=== PATIENT | female | born 1985 | race Caucasian/White ===

== ENCOUNTER 2017-04-05 14:27 | Emergency (ER) | payer BC ==
[~2017-04-05] VITALS: Ht 162.6 cm; Wt 56.1 kg
[~2017-04-05 14:27] MED LIST: DIPH25CA65 PO; TRAM-10 PO
[2017-04-05 14:35] VITALS: Ht 162.6 cm; Wt 56.1 kg
[2017-04-05] MEDS ORDERED: SODIUM CHLORIDE 0.9% 1000ML 2,000 ML IV STA (14:57)
[2017-04-05] MEDS ORDERED: ONDANSETRON INJ 2 MG/ML 2 ML VIAL IV STA (14:57)
[2017-04-05] MEDS ORDERED: KETOROLAC TROMETHAMINE 30 MG/ML VIAL IV STA (14:57)
[2017-04-05] MEDS ORDERED: DiphenhydrAMINE HCL 50 MG/ML VIAL IV STA (14:57)
[2017-04-05] MEDS ORDERED: PROCHLORPERAZINE 5 MG/ML 2 ML VIAL IM STA (14:57)
[2017-04-05] MEDS ORDERED: DEXAMETHASONE SOD INJ 10 MG/ML VIAL IV ONE (15:00)
[2017-04-05 15:21] VITALS: O2SAT 98
[2017-04-05] MEDS ORDERED: IBUP-1050 PO (15:22)
--- NOTE | 2017-04-05 15:56 | DIAGNOSTIC IMAGING REPORT ---
CT SCAN OF THE BRAIN WITHOUT IV CONTRAST CLINICAL HISTORY: Headache. COMPARISON STUDY: No priors. TECHNIQUE: Unenhanced axial CT scan of the brain is performed from the vertex to the skull base. Automated dose control exposure was utilized. CT DOSE: 614.27 mGy.cm FINDINGS: Brain parenchyma: The brain parenchyma is normal in appearance. There is no hemorrhage, mass effect, or evidence of acute territorial ischemia by CT criteria. Blum-white matter is preserved. No extra-axial fluid collection is seen. Ventricles, sulci, cisterns: Normal in configuration. Intracranial vasculature: The visualized intracranial vasculature at the skull base is normal in appearance. Calvarium: Unremarkable. Sinuses and mastoids: The visualized paranasal sinuses are clear. The mastoid air cells are well pneumatized. Orbits: The bony orbits are grossly intact. IMPRESSION: No acute intracranial abnormality. Electronically signed by: Phil Kimbrough M.D. 04/05/2017 3:55 PM Dictated Date/Time: 04/05/2017 3:54 PM
--- NOTE | 2017-04-05 16:35 | EMERGENCY ROOM VISIT NOTE ---
ED Visit Note First contact with patient: 14:38 CHIEF COMPLAINT: Migraine headache times one day HISTORY OF PRESENT ILLNESS: Patient is a 32-year-old white female who presents to the emergency department for evaluation of a migraine that started yesterday. She has a history of migraine headaches, is followed by her primary care provider primarily. She has been worked up by neurology and had an MRI in the past. Patient states she can typically manage her migraines at home. She takes tramadol 50 mg at the onset of her headache which she took yesterday at 3 PM. 6 hours later she took ibuprofen, and continue to take the ibuprofen every 6 hours, but the headache has persisted. She states that her migraine feels typical of her normal phenomenon, just more severe. She experienced her typical visual aura, fatigue and feels pain in her usual bitemporal and occipital areas with associated nausea, photo and phonophobia. She denies any vomiting. She states this is one of the worst migraines that she has ever had, and rates her pain a 10/10 presently. She has not been ill with any cold, upper respiratory symptoms, fever or chills recently. She denies any difficulty with balance, speech or coordination. No numbness, tingling or weakness into the extremities. No trauma to the head and no neck pain. She states that she had her period from the eighth to the 12th, and does note that sometimes her bad headaches correspond to her menses. REVIEW OF SYSTEMS: Review of systems as per HPI. All other systems reviewed were negative. 10 systems reviewed. PMH: Electronic medical records are reviewed and summarized as above/below. See Problem List. SOCIAL HISTORY: Patient lives at home with her and children. Employed. Nonsmoker. PHYSICAL EXAM: Vital Signs: Reviewed Nurse's notes. General Appearance: Uncomfortable-appearing 32-year-old white female who was awake and alert and laying in a darkened room. Eyes: Pupils equal round reactive to light extraocular muscles are intact, no proptosis, mild photophobia. Funduscopic exam unable to be performed due to photophobia. ENT: Oropharynx is clear, mucous membranes are moist, tympanic membranes are clear bilaterally, no sinus or dental tenderness Neck: Supple, no cervical lymphadenopathy, no meningismus Heart: Regular rate and rhythm, S1 and S2 Lungs: Clear to auscultation bilaterally, no wheezes Rales or rhonchi, no increased work of breathing Abdomen: Soft nontender nondistended. Normal active bowel sounds. No rebound. No guarding. Back: No midline tenderness to palpation. : No CVA tenderness to palpation. Skin: Warm, no diaphoresis, no rashes. Extremities: No cyanosis, clubbing, or edema Neurologic: Patient is awake alert, and oriented x 3. Cranial nerves 2-12 are grossly intact. Motor 5 out of 5 strength bilateral upper extremities and lower extremities. No gross sensory deficits. Reflexes are 2+ throughout. Negative Romberg and pronator drift. Rapid alternating movements are intact. Normal gait. EMERGENCY DEPARTMENT COURSE: The patient was seen and evaluated as above. Her old records were reviewed. IV lock was initiated. She was placed on the continuous pulse ox monitoring. She was given a 2 L bolus of normal saline solution and medicated with Toradol 30 mg, Zofran 4 mg, Decadron 10 mg, Compazine 10 mg and Benadryl 25 mg IV. Due to the severe nature of her headache , I did discuss performing a head CT with her and she was in agreement. Her neurologic exam is otherwise benign. She does not have any physical exam findings to suspect meningitis or encephalitis. Head CT was negative as noted below. The patient was reassessed, and reported significant improvement in her headache. She rated a 3/10, and felt well enough to discharge to home to rest and use her home medications. Her is driving. The patient rated her pain a 2/10 at discharge. Differential includes: acute intracranial bleed, meningitis, encephalitis, mass or mass effect, sinusitis, infection, migraine, tumor, headache, temporal arteritis and carbon monoxide exposure. CT SCAN OF THE BRAIN WITHOUT IV CONTRAST CLINICAL HISTORY: Headache. COMPARISON STUDY: No priors. TECHNIQUE: Unenhanced axial CT scan of the brain is performed from the vertex to the skull base. Automated dose control exposure was utilized. CT DOSE: 614.27 mGy.cm FINDINGS: Brain parenchyma: The brain parenchyma is normal in appearance. There is no hemorrhage, mass effect, or evidence of acute territorial ischemia by CT criteria. Blum-white matter is preserved. No extra-axial fluid collection is seen. Ventricles, sulci, cisterns: Normal in configuration. Intracranial vasculature: The visualized intracranial vasculature at the skull base is normal in appearance. Calvarium: Unremarkable. Sinuses and mastoids: The visualized paranasal sinuses are clear. The mastoid air cells are well pneumatized. Orbits: The bony orbits are grossly intact. IMPRESSION: No acute intracranial abnormality. Problem List Medical Problems: (1) Chest pain Status: Resolved (2) Contusion of rib Status: Resolved (3) Dermatitis Status: Resolved (4) Fibromyalgia Status: Chronic (5) Fibromyalgia Status: Resolved (6) Intrauterine Status: Resolved (7) Personal History Of Urinary Calculi Status: Chronic (8) CONTRACTIONS Status: Resolved (9) Rash Status: Resolved (10) Sacral back pain Status: Resolved (11) Spontaneous rupture of membranes Status: Resolved (12) Vaginal delivery Status: Resolved Surgical Problems: (1) Myringotomy tube status Status: Resolved Current/Historical Medications Scheduled PRN Diphenhydramine Hcl (Benadryl Allergy), 1 CAP PO DIRECTED PRN for ALLERGIC REACTION Ibuprofen (Advil), 400 MG PO Q6 PRN for Headache Tramadol (Ultram), 50 MG PO Q8H PRN for OPTICAL HEADACHE Allergies Coded Allergies: Onion (Verified Allergy, Severe, ANAPHYLAXIS WITH RED ONIONS, 11/26/15) Vancomycin (Verified Allergy, Severe, RASH, SOB, 11/26/15) [place] (Verified Allergy, Intermediate, Rash, 11/26/15) Ciprofloxacin (Unverified Allergy, Mild, OTHER, 11/26/15) Latex1 -Allergic Contact Dermititis (Unverified Allergy, Mild, RASH, ) Pregabalin (Unverified Allergy, Unknown, NAUSEA,ITCHING, 11/26/15) Quinolones (Verified Adverse Reaction, Severe, BLEEDING, 11/26/15) Hyoscyamine (Verified Adverse Reaction, Mild, HEADACHE, 11/26/15) Penicillins (Verified Adverse Reaction, Mild, HEADACHE, HAS HAD IV PCN W/ O RXN, 11/26/15) HEADACHES Vital Signs Date Time Temp Pulse Resp B/P Pulse Ox O2 Delivery O2 Flow Rate FiO2 04/05/17 17:10 36.7 65 18 99/60 99 04/05/17 17:04 65 18 99/60 99 Room Air 04/05/17 15:21 98 Room Air 04/05/17 14:35 36.7 74 16 119/82 98 Room Air Medications Administered Medications (Trade) Dose Ordered Sig/Amita Route Start Time Stop Time Status Last Admin Dose Admin Sodium Chloride (Nss 1000ml) 2,000 ml @ 999 mls/hr Q2H1M STAT IV 04/05/17 14:57 04/05/17 16:57 DC 04/05/17 15:19 999 MLS/HR Ketorolac Tromethamine (Toradol Inj) 30 mg NOW STAT IV 04/05/17 14:57 04/05/17 15:00 DC 04/05/17 15:20 30 MG Dexamethasone Sodium Phosphate (Decadron Inj) 10 mg NOW ONCE IV 04/05/17 15:00 04/05/17 15:01 DC 04/05/17 15:20 10 MG Prochlorperazine Edisylate (Compazine Inj) 10 mg NOW STAT IM 04/05/17 14:57 04/05/17 15:00 DC 04/05/17 15:19 10 MG Diphenhydramine HCl (Benadryl Inj) 25 mg NOW STAT IV 04/05/17 14:57 04/05/17 15:00 DC 04/05/17 15:19 25 MG Ondansetron HCl (Zofran Inj) 4 mg NOW STAT IV 04/05/17 14:57 04/05/17 15:00 DC 04/05/17 15:20 4 MG Departure Information Impression Primary Impression: Migraine Referrals Shanae Carvalho D.OAgapito (PCP) Patient Instructions My [facility] Additional Instructions DO NOT drive, drink alcohol, operate machinery, or perform dangerous activities today. You were given medications in the ER that can affect your ability to safely function or operate a vehicle. Rest today in a quiet, peaceful, dark environment and get a full 8-10 hrs of sleep tonight. Avoid loud noises, smoke/smoking, alcohol, bright lights, stress, or physical exertion today to minimize the chance the headache may return. Continue current medications. Return to the ER for passing out, worsening headache, vision problems, neck stiffness/pain, fevers, vomiting, worsening of your condition, or as needed. Follow up with your primary physician in 2-3 days for a recheck of your current condition.
[2017-04-05 17:10] VITALS: BP 99/60; PULSE 65; TEMP 36.7; O2SAT 99
== END 2017-04-05 17:11 | disposition home or self-care (01) ==
LOC: C.EDB 14:30 → C.EDC 17:11
DX: G43.909 Migraine, unspecified, not intractable, without status migrainosus (principal); Z87.442 Personal history of urinary calculi

== ENCOUNTER → 2017-09-02 | Outpatient (CLI) | payer BC ==
[~2017-09-02] MED LIST changes: +IBUP-1050 PO
[2017-09-02 13:13] LABS: HEMATOCRIT 40.7 % (37-47); MEAN CELL VOLUME 88.7 fL (80-100); MEAN CORPUSCULAR HEMOGLOBIN 29.4 pg (25-34); MEAN CORPUSCULAR HGB CONC 33.2 g/dl (32-36); MEAN PLATELET VOLUME 10.6 fL (7.4-10.4); PLATELET COUNT 211 K/uL (130-400); RED BLOOD COUNT 4.59 M/uL (4.2-5.4)
[2017-09-02 13:29] LABS: PREG INTERNAL NEGATIVE QC NEG CLEAR BACKGROUND; PREG INTERNAL POSITIVE QC POS CONTROL LINE
== END | disposition home or self-care (01) ==
LOC: C.LAB1850 11:41
PROVIDERS: ATTEND Physician Assistant
DX: N92.0 Excessive and frequent menstruation with regular cycle (principal)

== ENCOUNTER 2017-09-09 20:18 | Emergency (ER) | payer BC ==
[~2017-09-09] VITALS: Ht 162.6 cm; Wt 56.7 kg
[2017-09-09 20:39] VITALS: TEMP 36.9
[2017-09-09 21:25] VITALS: Ht 162.6 cm; Wt 56.7 kg
[2017-09-09 21:45] VITALS: O2SAT 99
[2017-09-09 21:49] LABS: BASO % 0.5 %; BASO ABS # 0.03 K/uL (0-0.2); COMPLETE YES; EOS % 1.9 %; HEMATOCRIT 36.6 % (37-47); IG% 0.2 %; MEAN CELL VOLUME 88.4 fL (80-100); MEAN CORPUSCULAR HGB CONC 33.9 g/dl (32-36); MEAN PLATELET VOLUME 10.1 fL (7.4-10.4); MONO % 9.3 %; NEUT % 51.1 %; PLATELET COUNT 206 K/uL (130-400); RED BLOOD COUNT 4.14 M/uL (4.2-5.4); WHITE BLOOD COUNT 5.94 K/uL (4.8-10.8)
[2017-09-09 22:09] LABS: PROTHROMBIN TIME (PATIENT) 10.9 SECONDS (9.0-12.0)
[2017-09-09 22:11] LABS: URINE APPEARANCE CLEAR (CLEAR); URINE BILIRUBIN NEG (NEG); URINE COLOR YELLOW; URINE NITRITE NEG (NEG); URINE PH 5.5 (4.5-7.5); URINE SPECIFIC GRAVITY 1.026 (1.000-1.030); UROBILINOGEN NEG (NEG)
[2017-09-09 22:13] LABS: MANUAL MICROSCOPIC REQUIRED? NO; REVIEW REQ? NO
[2017-09-09 22:15] LABS: BUN/CREATININE RATIO 23.5 (10-20); CREATININE 0.66 mg/dl (0.60-1.20); POTASSIUM 3.4 mmol/L (3.5-5.1)
[2017-09-09 22:17] LABS: ALB/GLOB RATIO 1.2 (0.9-2)
[2017-09-09] MEDS ORDERED: KETOROLAC TROMETHAMINE 30 MG/ML VIAL IV STA (23:49)
[2017-09-10 00:17] VITALS: BP 132/74; PULSE 68; O2SAT 99
[2017-09-10] MEDS ORDERED: NAPR500T3 PO (00:17)
--- NOTE | 2017-09-10 01:28 | EMERGENCY ROOM VISIT NOTE ---
History Report prepared by Dean: Damari Escobedo Under the Supervision of: Dr. Bossman Sung M.D. First contact with patient: 20:49 Chief Complaint: VAGINAL BLEEDING Stated Complaint: HEAVY PERIOD History of Present Illness The patient is a 32 year old female who presents to the Emergency Room with complaints of persistent heavy vaginal bleeding starting 1200 today. The patient has been having increasingly heavy periods since the of her 3rd child 4 years ago. Since 1200, she has been soaking a super tampon and a pad every hour. She is feeling nauseous. She reports lower abdominal cramping which she states feels like going into labor. She is having lower back pain which radiates up her back. She usually only has lower back pain with her periods. She states that she can feel the pain when she breathes in. She has tried taking Motrin for the pain to no significant relief. She is not on control. She notes a family history of endometriosis. Pt denies LOC, headache, fevers, chills, diaphoresis, visual changes, neck pain, chest pain, breathing difficulties, vomiting, melena, hematochezia, urinary symptoms, numbness, weakness, lymphadenopathy, rash, or other complaints. Source of History: patient Onset: 1200 Position: other (vaginal) Symptom Intensity: 1 tampon and pad per hour Quality: other (heavy bleeding) Timing: other (persistent) Associated Symptoms: + nausea, + abdominal pain, + back pain Review of Systems See HPI for pertinent positives and negatives. A total of ten systems were reviewed and were otherwise negative. Past Medical & Surgical Medical Problems: (1) Chest pain (2) Contusion of rib (3) Dermatitis (4) Fibromyalgia (5) Fibromyalgia (6) Intrauterine (7) Personal History Of Urinary Calculi (8) CONTRACTIONS (9) Rash (10) Sacral back pain (11) Spontaneous rupture of membranes (12) Vaginal delivery Surgical Problems: (1) Myringotomy tube status Family History Hypertension Social History Smoking Status: Never Smoker Alcohol Use: none Drug Use: none Marital Status: Housing Status: lives with family Occupation Status: employed Current/Historical Medications Scheduled PRN Naproxen (Naproxen), 1 TAB PO BID PRN for Pain Allergies Coded Allergies: Onion (Verified Allergy, Severe, ANAPHYLAXIS WITH RED ONIONS, 09/09/17) Vancomycin (Verified Allergy, Severe, RASH, SOB, 11/26/15) [place] (Verified Allergy, Intermediate, Rash, 09/09/17) Ciprofloxacin (Unverified Allergy, Mild, OTHER, 09/09/17) Latex1 -Allergic Contact Dermititis (Unverified Allergy, Mild, RASH, 09/09) Pregabalin (Unverified Allergy, Unknown, NAUSEA,ITCHING, 09/09/17) Quinolones (Verified Adverse Reaction, Severe, BLEEDING, 11/26/15) Hyoscyamine (Verified Adverse Reaction, Mild, HEADACHE, 09/09/17) Penicillins (Verified Adverse Reaction, Mild, HEADACHE, HAS HAD IV PCN W/ O RXN, 09/09/17) HEADACHES Physical Exam Vital Signs Date Time Temp Pulse Resp B/P (MAP) Pulse Ox O2 Delivery O2 Flow Rate FiO2 09/10/17 00:17 68 16 132/74 99 Room Air 09/09/17 23:08 66 16 106/69 97 Room Air 09/09/17 22:06 64 16 105/72 99 Room Air 09/09/17 21:55 67 09/09/17 21:45 99 Room Air 09/09/17 21:45 68 13 108/64 99 Room Air 09/09/17 20:39 36.9 72 20 135/96 99 Room Air Physical Exam GENERAL: Awake, alert, uncomfortable-appearing, in no distress HENT: Normocephalic, atraumatic. Oropharynx unremarkable. EYES: Normal conjunctiva. Sclera non-icteric. NECK: Supple. No nuchal rigidity. FROM. No JVD. RESPIRATORY: Clear to auscultation. CARDIAC: Regular rate, normal rhythm. Extremities warm and well perfused. Pulses equal. ABDOMEN: Soft, non-distended. Suprapubic tenderness to palpation. No rebound or guarding. No masses. PELVIC: Normal female anatomy. Cervix appears unremarkable. Mild tenderness and discomfort with speculum placement. No active hemorrhage. Dark Blood noted from the cervical os. MUSCULOSKELETAL: Chest examination reveals no tenderness. The back is symmetrical on inspection without obvious abnormality. There is left CVA tenderness to palpation. No joint edema. LOWER EXTREMITIES: Calves are equal size bilaterally and non-tender. No edema. No discoloration. NEURO: Normal sensorium. No sensory or motor deficits noted. SKIN: No rash or jaundice noted. Medical Decision & Procedures ER Provider Diagnostic Interpretation: Radiology results as stated below per my review and [facility] radiologist interpretation: US Pelvic/Endovag: Uterus measures 9.8 x 5.1 x 5.6 cm. No evidence of uterine mass. Endometrial echo complex measures 0.6 cm, which is within normal limits. Bilateral ovaries are normal in size, appearance, and blood flow. Prominent adnexal blood vasculature noted, nonspecific but correlate for possibility of pelvic congestion syndrome. Trace free fluid in cul-de-sac. Laboratory Results 09/09/17 21:33 Red Blood Count 4.14, Mean Corpuscular Volume 88.4, Mean Corpuscular Hemoglobin 30.0, Mean Corpuscular Hemoglobin Concent 33.9, Mean Platelet Volume 10.1, Neutrophils (%) (Auto) 51.1, Lymphocytes (%) (Auto) 37.0, Monocytes (%) (Auto) 9.3, Eosinophils (%) (Auto) 1.9, Basophils (%) (Auto) 0.5, Neutrophils # (Auto) 3.04, Lymphocytes # (Auto) 2.20, Monocytes # (Auto) 0.55, Eosinophils # (Auto) 0.11, Basophils # (Auto) 0.03 09/09/17 21:33 Test 09/09/17 21:30 09/09/17 21:33 Urine Color YELLOW Urine Appearance CLEAR (CLEAR) Urine pH 5.5 (4.5-7.5) Urine Specific [place] 1.026 (1.000-1.030) Urine Protein NEG (NEG) Urine Glucose (UA) NEG (NEG) Urine Ketones NEG (NEG) Urine Occult Blood 1+ (NEG) Urine Nitrite NEG (NEG) Urine Bilirubin NEG (NEG) Urine Urobilinogen NEG (NEG) Urine Leukocyte Esterase NEG (NEG) Urine WBC (Auto) 0 /hpf (0-5) Urine RBC (Auto) 5-10 /hpf (0-4) Urine Hyaline Casts (Auto) 0 /lpf (0-5) Urine Epithelial Cells (Auto) 10-20 /lpf (0-5) Urine Bacteria (Auto) NEG (NEG) Urine Test NEG (NEG) White Blood Count 5.94 K/uL (4.8-10.8) Red Blood Count 4.14 M/uL (4.2-5.4) Hemoglobin 12.4 g/dL (12.0-16.0) Hematocrit 36.6 % (37-47) Mean Corpuscular Volume 88.4 fL (80-100) Mean Corpuscular Hemoglobin 30.0 pg (25-34) Mean Corpuscular Hemoglobin Concent 33.9 g/dl (32-36) Platelet Count 206 K/uL (130-400) Mean Platelet Volume 10.1 fL (7.4-10.4) Neutrophils (%) (Auto) 51.1 % Lymphocytes (%) (Auto) 37.0 % Monocytes (%) (Auto) 9.3 % Eosinophils (%) (Auto) 1.9 % Basophils (%) (Auto) 0.5 % Neutrophils # (Auto) 3.04 K/uL (1.4-6.5) Lymphocytes # (Auto) 2.20 K/uL (1.2-3.4) Monocytes # (Auto) 0.55 K/uL (0.11-0.59) Eosinophils # (Auto) 0.11 K/uL (0-0.5) Basophils # (Auto) 0.03 K/uL (0-0.2) RDW Standard Deviation 42.2 fL (36.4-46.3) RDW Coefficient of Variation 13.2 % (11.5-14.5) Immature Granulocyte % (Auto) 0.2 % Immature Granulocyte # (Auto) 0.01 K/uL (0.00-0.02) Prothrombin Time 10.9 SECONDS (9.0-12.0) Prothromb Time International Ratio 1.0 (0.9-1.1) Activated Partial Thromboplast Time 24.7 SECONDS (21.0-31.0) Partial Thromboplastin Ratio 1.0 Anion Gap 5.0 mmol/L (3-11) Est Creatinine Clear Calc Drug Dose 106.7 ml/min Estimated GFR () 136.4 Estimated GFR (Non- 117.7 BUN/Creatinine Ratio 23.5 (10-20) Calcium Level 9.0 mg/dl (8.5-10.1) Total Bilirubin 0.5 mg/dl (0.2-1) Aspartate Amino Transf (AST/SGOT) 12 U/L (15-37) Alanine Aminotransferase (ALT/SGPT) 17 U/L (12-78) Alkaline Phosphatase 50 U/L (45-117) Total Protein 7.3 gm/dl (6.4-8.2) Albumin 3.9 gm/dl (3.4-5.0) Globulin 3.4 gm/dl (2.5-4.0) Albumin/Globulin Ratio 1.2 (0.9-2) Laboratory results reviewed by me Medications Administered Medications (Trade) Dose Ordered Sig/Amita Route Start Time Stop Time Status Last Admin Dose Admin Ketorolac Tromethamine (Toradol Inj) 15 mg NOW STAT IV 09/09/17 23:49 09/09/17 23:50 DC 09/10/17 00:01 15 MG ED Course 2100: The patient was evaluated in room B6. A complete history and physical exam was performed. 2344: I reevaluated the patient. I discussed the results with her. 2349: Toradol Inj 15 mg IV. 2356: I discussed the patient's case with Dr. Gordon, [facility] Deputy Director Of Finance. She recommends symptomatic treatment and outpatient follow up. 0010: Upon reexamination, the patient was doing better. I discussed the test results with her. She verbalized agreement of the treatment plan. She will be discharged home to follow up in the office. Medical Decision Prior records/ancillary studies reviewed. Triage Nursing notes reviewed and agree them. The patient's history was concerning for vaginal bleeding and abdominal pain. Differential diagnosis: Etiologies such as ectopic , dysfunction uterine bleeding, bleeding dyscrasia, trauma, infection, as well as others were entertained. Physical examination: as above. benign abdomen ER treatment provided: Toradol On reassessment the patient felt better. Diagnostic interpretation by me: CBC, coagulation studies, and chemistries were unremarkable. Urinalysis unremarkable. Patient is not . Imaging studies: Ultrasound as above The patient appears to have dysfunctional uterine bleeding. She will need close outpatient follow-up with [facility]. Consultation: A consultation was placed with the tail ripper physician, Dr. Gordon. The case was discussed and diagnostics were reviewed. She stressed the need for outpatient follow-up with [facility]. She agreed with NSAID use. By the evaluation outlined above emergent etiologies such as bleeding dyscrasia , ectopic , trauma, as well as others were deemed relatively unlikely. The patient was informed about the findings as listed above. All questions were answered and she was very pleased with the treatment. Return instructions were outlined and the patient was discharged in stable condition. Outpatient prescription management: Naprosyn 500 mg twice a day as needed for pain or bleeding Referral: The patient was referred to [facility] for follow-up in 2 to 3 days for a recheck of her current condition. Medication Reconcilliation Current Medication List: was personally reviewed by me Blood Pressure Screening Patient's blood pressure: Normal blood pressure Blood pressure disposition: Did not require urgent referral Consults Time Called: [phone] Consulting Physician: Dr. Gordon [facility] Deputy Director Of Finance Returned Call: [phone] I discussed the patient's case with her. She recommends symptomatic treatment and outpatient follow up. Impression Primary Impression: Dysfunctional uterine bleeding Scribe Attestation The scribe's documentation has been prepared under my direction and personally reviewed by me in its entirety. I confirm that the note above accurately reflects all work, treatment, procedures, and medical decision making performed by me. Departure Information Dispostion Home / Self-Care Prescriptions Naproxen (NAPROXEN) 500 Mg Tab 1 TAB PO BID Y for Pain, #20 TAB Prov: Bossman Sung MD 09/10/17 Referrals Shanae Carvalho D.O. Patel, Shreya M., M.D.([employer] ANALYST/OB) Forms HOME CARE DOCUMENTATION FORM, IMPORTANT VISIT INFORMATION, WORK / SCHOOL INSTRUCTIONS Patient Instructions My [facility] Additional Instructions Naprosyn 500 mg every 12 hours as needed for pain and bleeding. Take with food. Prolonged inappropriate use can lead to stomach upset or ulcers. Return to the emergency department for passing out, abdominal pain, bleeding more than 3 pads an hour for 3 consecutive hours, or as needed. No tampon use, intercourse, physical exertion, or strenuous activity. Rest and drink plenty of fluids. Follow-up with [facility] tomorrow to set your follow-up appointment.
--- NOTE | 2017-09-10 06:59 | DIAGNOSTIC IMAGING REPORT ---
EXAMINATION: PELVIC ULTRASOUND (transabdominal and endovaginal scanning) CLINICAL HISTORY: vaginal bleeding COMPARISON STUDY: 04/24/2013 FINDINGS: The uterus measured 9.8 x 5.1 x 5.6 cm. The endometrial stripe measured 6 mm. The right ovary measured 31 x 17 x 27 mm. The left ovary measured 37 x 13 x 25 mm. There is no ultrasonographic evidence of ovarian torsion. It should be noted that ovarian torsion can be present with normal Doppler ultrasonographic findings. There is trace free fluid likely physiologic. There is prominent adnexal vasculature. This is a nonspecific finding but has been reported in pelvic congestion syndrome. IMPRESSION: Normal uterus and ovaries. Electronically signed by: Alpesh Henley M.D. 09/10/2017 6:57 AM Dictated Date/Time: 09/10/2017 6:56 AM
== END 2017-09-10 00:28 | disposition home or self-care (01) ==
LOC: C.EDB 20:19
DX: N93.8 Other specified abnormal uterine and vaginal bleeding (principal); Z87.828 Personal history of other (healed) physical injury and trauma; Z87.440 Personal history of urinary (tract) infections; Z88.0 Allergy status to penicillin; Z88.1 Allergy status to other antibiotic agents; Z88.2 Allergy status to sulfonamides; Z91.040 Latex allergy status; Z91.018 Allergy to other foods; Z91.09 Other allergy status, other than to drugs and biological substances; Z82.49 Family history of ischemic heart disease and other diseases of the circulatory system

== ENCOUNTER 2018-01-17 17:09 | Emergency (ER) | payer BC ==
[~2018-01-17] VITALS: Ht 162.6 cm; Wt 55.0 kg
[~2018-01-17 17:09] MED LIST changes: -DIPH25CA65 PO; -IBUP-1050 PO; +NAPR500T3 PO; -TRAM-10 PO
[2018-01-17 17:17] VITALS: TEMP 36.3; Ht 162.6 cm; Wt 55.0 kg
[2018-01-17] MEDS ORDERED: KETOROLAC TROMETHAMINE 30 MG/ML VIAL IV STA (18:30)
[2018-01-17] MEDS ORDERED: ONDANSETRON INJ 2 MG/ML 2 ML VIAL IV STA (18:30)
[2018-01-17] MEDS ORDERED: SODIUM CHLORIDE 0.9% 1000ML 1,000 ML IV STA (18:30)
[2018-01-17] MEDS ORDERED: CNC/18 PO (18:55)
[2018-01-17] MEDS ORDERED: DFL150 PO (18:55)
[2018-01-17] MEDS ORDERED: PHEN-876 PO (18:55)
[2018-01-17] MEDS ORDERED: CIPR-304 PO (18:55)
[2018-01-17] MEDS ORDERED: ULT50 PO (18:55)
[2018-01-17] MEDS ORDERED: SERT1TAB88 PO (18:55)
--- NOTE | 2018-01-17 18:58 | DIAGNOSTIC IMAGING REPORT ---
L-SPINE MIN 4 VIEWS ROUTINE CLINICAL HISTORY: Low back pain COMPARISON STUDY: No previous studies for comparison. FINDINGS: No fractures or subluxations are visualized. No destructive lesions are delineated on conventional radiographic evaluation. There is no pathologic bowel dilatation. IMPRESSION: Unremarkable conventional radiographic evaluation of the lumbar spine Electronically signed by: Alpesh Henley M.D. 01/17/2018 6:57 PM Dictated Date/Time: 01/17/2018 6:56 PM
[2018-01-17 19:19] LABS: BASO % 0.4 %; BASO ABS # 0.02 K/uL (0-0.2); EOS % 2.6 %; EOS ABS # 0.14 K/uL (0-0.5); HEMATOCRIT 39.8 % (37-47); HEMOGLOBIN 13.5 g/dL (12.0-16.0); LYMPH % 22.7 %; LYMPH ABS # 1.24 K/uL (1.2-3.4); MEAN CELL VOLUME 88.8 fL (80-100); MEAN CORPUSCULAR HEMOGLOBIN 30.1 pg (25-34); MEAN CORPUSCULAR HGB CONC 33.9 g/dl (32-36); MEAN PLATELET VOLUME 10.4 fL (7.4-10.4); MONO % 6.4 %; MONO ABS # 0.35 K/uL (0.11-0.59); NEUT % 67.9 %; NEUT ABS # 3.72 K/uL (1.4-6.5); PLATELET COUNT 204 K/uL (130-400); RED CELL DISTRIBUTION WIDTH CV 13.4 % (11.5-14.5); RED CELL DISTRIBUTION WIDTH SD 43.5 fL (36.4-46.3); WHITE BLOOD COUNT 5.47 K/uL (4.8-10.8)
[2018-01-17 19:37] LABS: ALBUMIN 3.9 gm/dl (3.4-5.0); CALCIUM 8.7 mg/dl (8.5-10.1); CREATININE 0.75 mg/dl (0.60-1.20); POTASSIUM 4.1 mmol/L (3.5-5.1)
[2018-01-17 19:40] LABS: TOTAL PROTEIN 7.7 gm/dl (6.4-8.2)
--- NOTE | 2018-01-17 20:40 | DIAGNOSTIC IMAGING REPORT ---
CT SCAN OF THE ABDOMEN AND PELVIS WITHOUT CONTRAST CLINICAL HISTORY: Right flank pain and hematuria COMPARISON STUDY: August 2010 TECHNIQUE: CT scan of the abdomen and pelvis was performed from the lung bases to the proximal femurs. Images are reviewed in the axial, sagittal, and coronal planes. IV contrast was not administered for this examination. A dose lowering technique was utilized adhering to the principles of ALARA. CT DOSE: 314.27 mGy.cm FINDINGS: Lower chest: There are mild basilar atelectatic changes Liver: There is a stable 6 mm right lobe hepatic lipoma Gallbladder: Unremarkable. Spleen: Normal in size and attenuation. Pancreas: Unremarkable. Adrenal glands: Unremarkable. Kidneys: No renal, ureteral, or bladder calculi are visualized. There is no hydronephrosis. Bowel: There are no transition zones indicate bowel obstruction. Evaluation the bowel is limited given the paucity of intra-abdominal fat and the lack of intravenous and oral contrast Peritoneum: There is trace pelvic fluid, likely physiologic. There is a nonspecific 7 mm right presacral calcification. Vasculature: The abdominal aorta is normal in course and caliber. Adenopathy: None. Pelvic viscera: The bladder, and pelvic viscera are unremarkable. Skeletal structures: No destructive osseous lesions are seen. IMPRESSION: 1. No evidence of bowel obstruction. No evidence of free air 2. No renal, ureteral, or bladder calculi identified Electronically signed by: Alpesh Henley M.D. 01/17/2018 8:38 PM Dictated Date/Time: 01/17/2018 8:34 PM
--- NOTE | 2018-01-17 20:54 | EMERGENCY ROOM VISIT NOTE ---
History First contact with patient: 18:01 Chief Complaint: FLANK PAIN Stated Complaint: KIDNEY INFECTION,HERNIATED DISC NOT GETTING BETTER History of Present Illness The patient is a 32 year old female who presents to the Emergency Room with complaints of pain over both her kidneys. The patient states that she has been having back pain for 4 days. The patient states that the pain was mainly on the right side and was radiating down both her legs to her knees. The patient denies any numbness and tingling. The patient denies any loss of bowel or bladder control. Patient states that she went to her chiropractor and was told she had a herniated disc but thought that her symptoms could be due to something else therefore she went to [facility] the next day and was told she had a urinary tract infection and was placed on Cipro. The patient does admit to history of kidney stones but states this feels different. Patient does admit to dysuria but denies any urgency or frequency. The patient states she had blood in her urine initially but not now. The patient states that the pain is now over both of her kidneys which is why she came to the emergency room. She denies any history of pyelonephritis. The patient denies . Review of Systems 10 system review was performed and was negative unless stated otherwise history of present illness. Past Medical/Surgical History Medical Problems: (1) Chest pain (2) Contusion of rib (3) Dermatitis (4) Fibromyalgia (5) Fibromyalgia (6) Intrauterine (7) Personal History Of Urinary Calculi (8) CONTRACTIONS (9) Rash (10) Sacral back pain (11) Spontaneous rupture of membranes (12) Vaginal delivery Surgical Problems: (1) Myringotomy tube status Family History Hypertension Social History Smoking Status: Never Smoker Alcohol Use: none Drug Use: none Marital Status: Housing Status: lives with family Occupation Status: employed Current/Historical Medications Scheduled Ciprofloxacin HCl (Ciprofloxacin), 500 MG PO BID Fluconazole (Fluconazole), 150 MG PO UD Methylphenidate Hcl (Concerta), 18 MG PO DAILY Phenazopyridine HCl (Pyridium), 200 MG PO UD Sertraline HCl (Sertraline HCl), 25 MG PO DAILY Scheduled PRN Tramadol HCl (Tramadol HCl), 50 MG PO UD PRN for Migraine Physical Exam Vital Signs Date Time Temp Pulse Resp B/P (MAP) Pulse Ox O2 Delivery O2 Flow Rate FiO2 01/17/18 19:51 61 18 97/48 100 Room Air 01/17/18 17:17 36.3 71 20 119/53 98 Room Air Physical Exam GENERAL: 32-year-old white female appears in no acute distress. MENTAL Status: Alert and oriented 3. MOUTH: Mucosa is moist NECK: Supple, no lymphadenopathy noted. No carotid bruits noted. LUNGS: Clear auscultation without wheezes rales or rhonchi. CARDIAC: Regular rate and rhythm without murmur. Pulses is full and equal throughout. BACK: Bilateral CVA tenderness noted. Right greater than left ABDOMEN: Positive bowel sounds all 4 quadrants. Soft, nontender to palpation without organomegaly or masses. LUMBAR SPINE: No gross bony deformity noted. The patient is nontender to palpation over the spinous processes. She is tender to palpation over the paravertebral regions bilaterally. Full range of motion. Bilateral patellar and Achilles reflexes are 2+. Muscle strength is 5 out of 5 bilateral lower extremities and symmetrical. EXTREMITIES: No cyanosis or edema noted. Medical Decision & Procedures ER Provider Diagnostic Interpretation: CT SCAN OF THE ABDOMEN AND PELVIS WITHOUT CONTRAST CLINICAL HISTORY: Right flank pain and hematuria COMPARISON STUDY: August 2010 TECHNIQUE: CT scan of the abdomen and pelvis was performed from the lung bases to the proximal femurs. Images are reviewed in the axial, sagittal, and coronal planes. IV contrast was not administered for this examination. A dose lowering technique was utilized adhering to the principles of ALARA. CT DOSE: 314.27 mGy.cm FINDINGS: Lower chest: There are mild basilar atelectatic changes Liver: There is a stable 6 mm right lobe hepatic lipoma Gallbladder: Unremarkable. Spleen: Normal in size and attenuation. Pancreas: Unremarkable. Adrenal glands: Unremarkable. Kidneys: No renal, ureteral, or bladder calculi are visualized. There is no hydronephrosis. Bowel: There are no transition zones indicate bowel obstruction. Evaluation the bowel is limited given the paucity of intra-abdominal fat and the lack of intravenous and oral contrast Peritoneum: There is trace pelvic fluid, likely physiologic. There is a nonspecific 7 mm right presacral calcification. Vasculature: The abdominal aorta is normal in course and caliber. Adenopathy: None. Pelvic viscera: The bladder, and pelvic viscera are unremarkable. Skeletal structures: No destructive osseous lesions are seen. IMPRESSION: 1. No evidence of bowel obstruction. No evidence of free air 2. No renal, ureteral, or bladder calculi identified Electronically signed by: Alpesh Henley M.D. L-SPINE MIN 4 VIEWS ROUTINE CLINICAL HISTORY: Low back pain COMPARISON STUDY: No previous studies for comparison. FINDINGS: No fractures or subluxations are visualized. No destructive lesions are delineated on conventional radiographic evaluation. There is no pathologic bowel dilatation. IMPRESSION: Unremarkable conventional radiographic evaluation of the lumbar spine Electronically signed by: Alpesh Henley M.D. Laboratory Results 01/17/18 19:03 Red Blood Count 4.48, Mean Corpuscular Volume 88.8, Mean Corpuscular Hemoglobin 30.1, Mean Corpuscular Hemoglobin Concent 33.9, Mean Platelet Volume 10.4, Neutrophils (%) (Auto) 67.9, Lymphocytes (%) (Auto) 22.7, Monocytes (%) (Auto) 6.4, Eosinophils (%) (Auto) 2.6, Basophils (%) (Auto) 0.4, Neutrophils # (Auto) 3.72, Lymphocytes # (Auto) 1.24, Monocytes # (Auto) 0.35, Eosinophils # (Auto) 0.14, Basophils # (Auto) 0.02 01/17/18 19:03 Test 01/17/18 18:50 01/17/18 19:03 Urine Color YELLOW Urine Appearance CLOUDY (CLEAR) Urine pH 5.0 (4.5-7.5) Urine Specific [place] 1.022 (1.000-1.030) Urine Protein NEG (NEG) Urine Glucose (UA) NEG (NEG) Urine Ketones NEG (NEG) Urine Occult Blood NEG (NEG) Urine Nitrite NEG (NEG) Urine Bilirubin NEG (NEG) Urine Urobilinogen NEG (NEG) Urine Leukocyte Esterase NEG (NEG) Urine WBC (Auto) 1-5 /hpf (0-5) Urine RBC (Auto) 0-4 /hpf (0-4) Urine Hyaline Casts (Auto) 1-5 /lpf (0-5) Urine Epithelial Cells (Auto) 20-30 /lpf (0-5) Urine Bacteria (Auto) NEG (NEG) White Blood Count 5.47 K/uL (4.8-10.8) Red Blood Count 4.48 M/uL (4.2-5.4) Hemoglobin 13.5 g/dL (12.0-16.0) Hematocrit 39.8 % (37-47) Mean Corpuscular Volume 88.8 fL (80-100) Mean Corpuscular Hemoglobin 30.1 pg (25-34) Mean Corpuscular Hemoglobin Concent 33.9 g/dl (32-36) Platelet Count 204 K/uL (130-400) Mean Platelet Volume 10.4 fL (7.4-10.4) Neutrophils (%) (Auto) 67.9 % Lymphocytes (%) (Auto) 22.7 % Monocytes (%) (Auto) 6.4 % Eosinophils (%) (Auto) 2.6 % Basophils (%) (Auto) 0.4 % Neutrophils # (Auto) 3.72 K/uL (1.4-6.5) Lymphocytes # (Auto) 1.24 K/uL (1.2-3.4) Monocytes # (Auto) 0.35 K/uL (0.11-0.59) Eosinophils # (Auto) 0.14 K/uL (0-0.5) Basophils # (Auto) 0.02 K/uL (0-0.2) RDW Standard Deviation 43.5 fL (36.4-46.3) RDW Coefficient of Variation 13.4 % (11.5-14.5) Immature Granulocyte % (Auto) 0.0 % Immature Granulocyte # (Auto) 0.00 K/uL (0.00-0.02) Anion Gap 5.0 mmol/L (3-11) Est Creatinine Clear Calc Drug Dose 93.9 ml/min Estimated GFR () 123.1 Estimated GFR (Non- 106.2 BUN/Creatinine Ratio 20.4 (10-20) Calcium Level 8.7 mg/dl (8.5-10.1) Total Bilirubin 0.6 mg/dl (0.2-1) Direct Bilirubin 0.1 mg/dl (0-0.2) Aspartate Amino Transf (AST/SGOT) 12 U/L (15-37) Alanine Aminotransferase (ALT/SGPT) 16 U/L (12-78) Alkaline Phosphatase 53 U/L (45-117) Total Protein 7.7 gm/dl (6.4-8.2) Albumin 3.9 gm/dl (3.4-5.0) Lipase 178 U/L (73-393) Medications Administered Medications (Trade) Dose Ordered Sig/Amita Route Start Time Stop Time Status Last Admin Dose Admin Sodium Chloride 1,000 ml @ 999 mls/hr Q1H1M STAT IV 01/17/18 18:30 01/17/18 19:30 DC 01/17/18 19:08 999 MLS/HR Ketorolac Tromethamine (Toradol Inj) 30 mg NOW STAT IV 01/17/18 18:30 01/17/18 18:33 DC 01/17/18 19:08 30 MG Ondansetron HCl (Zofran Inj) 4 mg NOW STAT IV 01/17/18 18:30 01/17/18 18:33 DC 01/17/18 19:08 4 MG ED Course The patient was evaluated. The patient's EMR medication list were reviewed. IV access was obtained. The patient was given 1 L normal saline wide open. She was given Zofran 4 mg IV for nausea and Toradol 30 mg IV for pain. CBC differential, renal profile, LFTs and lipase levels were ordered. Urinalysis was ordered. Lumbar spine x-rays was ordered interpreted by the radiologist and myself as above without any acute findings. Labs are reviewed and were unremarkable. Urinalysis was negative. Culture is pending. I informed the patient has a findings. Due to her history of kidney stones a CT stone study was ordered interpreted by the radiologist as above without any abnormal findings. The patient was informed of all findings. And was discharged home in stable condition.. Medical Decision Differential diagnosis include UTI, pyelonephritis, ureteral calculi, lumbar muscle strain [place] Drug Monitoring Program Search Results: patient reviewed within database Medication Reconcilliation Current Medication List: was personally reviewed by me Blood Pressure Screening Patient's blood pressure: Low blood pressure Impression Primary Impression: Low back pain Departure Information Dispostion Home / Self-Care Condition GOOD Referrals Shanae Carvalho D.O. (PCP) Forms HOME CARE DOCUMENTATION FORM, IMPORTANT VISIT INFORMATION Patient Instructions My [facility] Additional Instructions Continue to drink a lot of water. Finish your Cipro as prescribed. Take Zofran as needed for nausea. Tylenol and/or ibuprofen as needed for pain. Follow-up with her family physician next week for reevaluation. If symptoms worsen in the interim, return to ER. Problem Qualifiers Primary Impression: Low back pain Chronicity: acute Back pain laterality: bilateral Sciatica presence: unspecified whether sciatica present Qualified Codes: M54.5 - Low back pain
[2018-01-17] MEDS ORDERED: ONDANSETRON HOME PACK 4MG OD TAB PO ONE (21:00)
[2018-01-17 21:02] VITALS: BP 104/60; PULSE 65; O2SAT 98
== END 2018-01-17 20:58 | disposition home or self-care (01) ==
LOC: C.EDB 17:11 → C.EDC 20:58
DX: M54.5 Low back pain (principal); N39.0 Urinary tract infection, site not specified; Z82.49 Family history of ischemic heart disease and other diseases of the circulatory system; Z87.442 Personal history of urinary calculi

== ENCOUNTER 2018-02-25 17:29 | Emergency (ER) | payer BC ==
[~2018-02-25] VITALS: Ht 162.6 cm; Wt 56.6 kg
[~2018-02-25 17:29] MED LIST changes: +CIPR-304 PO; +CNC/18 PO; +DFL150 PO; -NAPR500T3 PO; +PHEN-876 PO; +SERT1TAB88 PO
[2018-02-25 17:38] VITALS: TEMP 36.9; Ht 162.6 cm; Wt 56.6 kg
[2018-02-25] MEDS ORDERED: DiphenhydrAMINE HCL 50 MG/ML VIAL IV STA ×2 (18:25→20:00)
[2018-02-25] MEDS ORDERED: ONDANSETRON INJ 2 MG/ML 2 ML VIAL IV STA (18:25)
[2018-02-25] MEDS ORDERED: SODIUM CHLORIDE 0.9% 1000ML 2,000 ML IV STA (18:25)
[2018-02-25] MEDS ORDERED: PROCHLORPERAZINE 5 MG/ML 2 ML VIAL IV STA (18:25)
[2018-02-25] MEDS ORDERED: KETOROLAC TROMETHAMINE 30 MG/ML VIAL IV STA (18:25)
[2018-02-25] MEDS ORDERED: DEXAMETHASONE **PF** INJ 10 MG/ML VIAL IV ONE (18:30)
[2018-02-25] MEDS ORDERED: CNC/36 PO (18:36)
[2018-02-25] MEDS ORDERED: IBUP-1050 PO (18:36)
[2018-02-25] MEDS ORDERED: ULT50 PO (18:55)
[2018-02-25 19:57] VITALS: O2SAT 100
--- NOTE | 2018-02-25 20:34 | EMERGENCY ROOM VISIT NOTE ---
ED Visit Note First contact with patient: 17:58 CHIEF COMPLAINT: Migraine headache HISTORY OF PRESENT ILLNESS: This 33-year-old female patient presented to the emergency department, ambulatory, with a gradual onset of a severe generalized headache that started 4 days ago. The patient states the migraine is similar to their typical migraines. There has been associated photophobia, phonophobia, nausea and vomiting. The patient denies fever or chills recently, and there is no weakness or numbness of the extremities. There is no difficulty with speech or vision. No trauma to the head and no neck pain. The pain is severe, constant , and it is slowly increasing in severity. The patient rates the pain as throbbing and pressure and 10/10. The patient has taken 800 mg Motrin without relief. The patient did see her PCP yesterday and was given a Toradol injection and Zofran. Her symptoms improved overnight, however significantly worsened first thing this morning. This is not the worst headache of the life and is similar to previous migraines, however the patient has not had a migraine this bad that landed her in the emergency department for almost an hour. Her most recent imaging studies of the brain were been normal. The patient does report an abnormal MRI performed in 2014, and states her PCP was concerned and requested an updated scan. The PCP was unaware of the CT scan performed here in 2017. The patient has not recently been ill. She has taken 2 doses of tramadol, but cannot take more than this, as it causes cluster headaches. REVIEW OF SYSTEMS: A 10 system review of systems was performed with positives and pertinent negatives listed in the history of present illness. All other systems were reviewed and are negative. ALLERGIES: Latex, vancomycin, ciprofloxacin, hyoscyamine pregabalin, quinolones , penicillins MEDICATIONS: Sertraline, Concerta, tramadol PMH: Migraines SOCIAL HISTORY: The patient lives locally with family. She denies drug, alcohol , tobacco use. PHYSICAL EXAM: Vital Signs: Reviewed Nurse's notes, vital signs stable. GENERAL : This is a 33-year-old white female, who appears in pain, but non toxic in appearance and in no acute distress. MENTAL STATUS: Alert, oriented, and coherent. HEENT: Normocephalic. PERRLA. EOMI. Nares patent without nuchal rigidity. Tympanic membranes pearly saucedo without erythema or effusion bilaterally. Mucous membranes moist. NECK: Supple, no nuchal rigidity, nontender, no lymphadenopathy. HEART: Regular rhythm and normal rate without murmurs, ectopy, gallops, or rubs. LUNGS: Clear to auscultation bilaterally without wheezes, rales or rhonchi. No dullness to percussion. No accessory muscle use. No retractions. SKIN: Normal. NEUROLOGICAL: Pupils are round, equal and react to light. The optic fundi are normal and the discs are flat. The patient moves all extremities well and the gait is normal. EMERGENCY DEPARTMENT COURSE: I examined the patient. Previous medical records reviewed, and I did obtain records from [facility] which consisted of 2 MRIs performed in 2014, one in April and one in June. The MRIs did show "abnormal signal in the left petrous apex consisting of T1 and T2 hyperintensity is suspected without any expansile features. This is likely an incidental finding and CT head without contrast represents a complementary study to completely evaluate this finding. This finding may represent trapped fluid that is slightly proteinaceous or hemorrhagic fluid and an 24 months or sooner if patient develops any symptoms referable to this location with MRI of the brain to monitor for any interval expansion or development of early cholesterol granuloma can be obtained." The patient did have a noncontrast CT scan of the head performed here in the emergency department in March 2017. This was normal. Previously, the patient was given 2 L normal saline solution, 30 mg Toradol, 4 mg Zofran, 10 mg Decadron, 10 mg Compazine, and 25 mg Benadryl IV. I did offer at this same course of medications, the patient was initially agreeable. She was concerned due to the possible fatigue side effect, and did request to hold the Compazine and Benadryl. The patient was given 2 L normal saline solution, 30 mg Toradol, 4 mg Zofran, and 10 mg Decadron. She was reassessed, and states her headache has improved, however she continues to have pressure behind her eyes. She does request IV Benadryl, as she has had Benadryl in the past without significant somnolence. The patient was given 25 mg Benadryl IV. The patient was reassessed. She is feeling much better at this time. She continues to have some slight pressure behind her eyes, but feels well enough for discharge. The patient was encouraged to follow-up outpatient with her PCP and begin taking medications prescribed as preventative migraine medications. She does report history of allergic rhinitis, and states she is suspicious if this is contributing to her symptoms. I did recommend beginning an antihistamine and magnesium to help with her symptoms. The patient was provided with the report from her CT scan performed in 2017. She will be discharged home with a prescription for prednisone to help ease the migraine over the next few days. All questions were answered to the patient's satisfaction. Discharge instructions reviewed, patient was discharged home in good condition. The differential diagnosis includes acute intracranial bleed, meningitis, encephalitis, mass or mass effect, sinusitis, infection, tumor, headache, temporal arteritis and carbon monoxide exposure, and migraine. I attest that I have personally reviewed the patient's current medication list. Patient was found to have normal blood pressure on screening and does not require follow-up. DIAGNOSIS: Migraine headache The chart was completed utilizing [employer] Speech voice recognition software. Grammatical errors, random word insertions, pronoun errors, and incomplete sentences are an occasional consequence of this system due to software limitations, ambient noise, and hardware issues. Any formal questions or concerns about the content, text, or information contained within the body of this dictation should be directly addressed to the provider for clarification. Problem List Medical Problems: (1) Chest pain Status: Resolved (2) Contusion of rib Status: Resolved (3) Dermatitis Status: Resolved (4) Fibromyalgia Status: Chronic (5) Fibromyalgia Status: Resolved (6) Intrauterine Status: Resolved (7) Personal History Of Urinary Calculi Status: Chronic (8) CONTRACTIONS Status: Resolved (9) Rash Status: Resolved (10) Sacral back pain Status: Resolved (11) Spontaneous rupture of membranes Status: Resolved (12) Vaginal delivery Status: Resolved Surgical Problems: (1) Myringotomy tube status Status: Resolved Current/Historical Medications Scheduled Ibuprofen (Advil), 800 MG PO PRN UD Methylphenidate Hcl (Concerta), 36 MG PO DAILY Ondasetron Odt (Zofran Odt), 4 MG SL Q6H Prednisone (Prednisone), 0 PO DAILY Scheduled PRN Tramadol HCl (Tramadol HCl), 50 MG PO UD PRN for Migraine Allergies Coded Allergies: Onion (Verified Allergy, Severe, ANAPHYLAXIS WITH RED ONIONS, 09/09/17) Vancomycin (Verified Allergy, Severe, RASH, SOB, 11/26/15) Gunlock (Verified Allergy, Intermediate, Rash, 09/09/17) Ciprofloxacin (Unverified Allergy, Mild, OTHER, 09/09/17) Latex1 -Allergic Contact Dermititis (Unverified Allergy, Mild, RASH, 09/09) Pregabalin (Unverified Allergy, Unknown, NAUSEA,ITCHING, 09/09/17) Quinolones (Verified Adverse Reaction, Severe, BLEEDING, 11/26/15) Hyoscyamine (Verified Adverse Reaction, Mild, HEADACHE, 09/09/17) Penicillins (Verified Adverse Reaction, Mild, HEADACHE, HAS HAD IV PCN W/ O RXN, 09/09/17) HEADACHES Vital Signs Date Time Temp Pulse Resp B/P (MAP) Pulse Ox O2 Delivery O2 Flow Rate FiO2 02/25/18 19:57 100 Room Air 02/25/18 19:55 93 17 113/63 100 Room Air 02/25/18 17:38 36.9 76 17 121/77 99 Room Air Medications Administered Medications (Trade) Dose Ordered Sig/Amita Route Start Time Stop Time Status Last Admin Dose Admin Sodium Chloride 2,000 ml @ 999 mls/hr Q2H1M STAT IV 02/25/18 18:25 02/25/18 20:25 DC 02/25/18 18:44 999 MLS/HR Ketorolac Tromethamine (Toradol Inj) 30 mg NOW STAT IV 02/25/18 18:25 02/25/18 18:29 DC 02/25/18 18:44 30 MG Ondansetron HCl (Zofran Inj) 4 mg NOW STAT IV 02/25/18 18:25 02/25/18 18:29 DC 02/25/18 18:45 4 MG Dexamethasone Sodium Phosphate (Dexamethasone Inj Pf) 10 mg NOW ONCE IV 02/25/18 18:30 02/25/18 18:31 DC 02/25/18 18:46 10 MG Diphenhydramine HCl (Benadryl Inj) 25 mg NOW STAT IV 02/25/18 20:00 02/25/18 20:01 DC 02/25/18 20:14 25 MG Departure Information Impression Primary Impression: Migraine Dispostion Home / Self-Care Condition GOOD Prescriptions Ondasetron Odt (ZOFRAN ODT) 4 Mg Tab 4 MG SL Q6H for Nausea, #10 TAB Prov: Edyta Ny PA-C 02/25/18 Prednisone (Prednisone) 20 Mg Tab 0 PO DAILY, #18 TAB 3 DAILY FOR 3 DAYS, THEN 2 DAILY FOR 3 DAYS, THEN 1 DAILY FOR 3 DAYS. Prov: Edyta Ny PA-C 02/25/18 Referrals Shanae Carvalho D.O. (PCP) Enedelia Diaz M.D. Patient Instructions ED Headache Migraine, My [facility] Additional Instructions You were seen in the emergency department today for a migraine. Please use caution if operating machinery or a vehicle, as you were given medications which may make you tired. Rest today in a quiet, peaceful, dark environment and get a full 8-10 hrs of sleep tonight. Avoid loud noises, smoke/smoking, alcohol, bright lights, stress, or physical exertion today to minimize the chance the headache may return. Drink plenty fluids and stay well-hydrated. Continue current medications as prescribed. Begin taking migraine preventative medication as prescribed by your PCP. You have been prescribed Prednisone. This is a steroid which will help decrease your inflammation, redness, and itch. Take this medicine as prescribed. Take the ENTIRE 9 day course. It is best to take steroids early in the morning as PM dosing can affect your sleeping patterns. You have been prescribed Zofran to be used for any nausea or vomiting. Take as prescribed. Ibuprofen(Motrin, Advil) may be used for fever or pain. Use 600mg every six hours as needed. Take with food. Avoid using more than 2400mg in a 24 hour period. Do not use 2400mg per day for more than three consecutive days without physician direction. Prolonged inappropriate use can lead to stomach upset or ulcers. Be cautious of using this medication while on prednisone. I do recommend using a smaller dose than normal. (AND/OR) Acetaminophen(Tylenol) may be used for fever or pain. Use 1000mg every six hours as needed. Avoid using more than 3000mg in a 24 hour period. You may consider taking magnesium 400 mg daily at bedtime to help with headaches /migraines. You may consider starting an antihistamine, allergy medication, for possible allergic rhinitis trigger. You may take a newer antihistamine such as Zyrtec, Lolita, or Claritin, or you may consider taking Benadryl 25-50 mg every 4-6 hours. As discussed, CT scan of the head/brain last year was normal, and did not note any of the abnormal findings noted on MRI performed in 2015. Please continue to follow-up with your PCP/neurologist regarding these findings. Return to the ER for passing out, worsening headache, vision problems, neck stiffness/pain, fevers, vomiting, worsening of your condition, or as needed. Follow up with your primary physician in 2-3 days for a recheck of your current condition. Problem Qualifiers Primary Impression: Migraine Migraine type: with aura Status migrainosus presence: with status migrainosus Intractability: intractable Qualified Codes: G43.111 - Migraine with aura, intractable, with status migrainosus
[2018-02-25] MEDS ORDERED: ONDA4TAB10 SL (20:50)
[2018-02-25] MEDS ORDERED: PRED20TA PO (20:50)
[2018-02-25 21:07] VITALS: BP 113/66; PULSE 72; O2SAT 97
== END 2018-02-25 21:08 | disposition home or self-care (01) ==
LOC: C.EDB 17:30 → C.EDD 21:08
DX: G43.111 Migraine with aura, intractable, with status migrainosus (principal); Z87.442 Personal history of urinary calculi; Z88.1 Allergy status to other antibiotic agents; Z88.0 Allergy status to penicillin; Z88.8 Allergy status to other drugs, medicaments and biological substances; Z91.048 Other nonmedicinal substance allergy status; Z91.018 Allergy to other foods; Z98.890 Other specified postprocedural states